=== PATIENT | female | born 1950 | race Caucasian/White ===

== ENCOUNTER 2019-02-19 12:39 | Emergency (ER) | payer MEDICARE, MEDICAID ==
[~2019-02-19] VITALS: Ht 121.9 cm; Wt 91.0 kg
[~2019-02-19 12:39] MED LIST: CEPHALEXIN500 MG PO; GABAPENTIN100 MG PO; KLOR-CON M1010 MEQ PO; LASIX 80 MG TAB80 MG PO; LISINOPRIL10 MG PO; NAPROXEN500 MG PO; NEXIUM20 M1 PO; OMEPRAZOLE DR20 MG PO
[2019-02-19 13:27] LABS: HEMATOCRIT 39.4 % (37.0-47.0); HEMOGLOBIN 12.3 g/dl (12.0-16.0); IMMATURE GRANULOCYTES 0.7 % (0.0-5.0); MEAN CELL VOLUME 89.1 fL CALC (80.0-100.0); MEAN CORPUSCULAR HGB 27.8 pG CALC (26.0-32.0); MEAN CORPUSCULAR HGB CONC 31.2 g/L CALC (32.0-36.0); NEUT# 4.75 thou/uL (2.00-7.15); RED BLOOD COUNT 4.42 mill/uL (4.20-5.60); RED CELL DISTRI WIDTH 14.6 % (11.5-15.5)
[2019-02-19 13:48] LABS: ALBUMIN 4.1 g/dL (3.2-5.0); ALKALINE PHOSPHATASE 112 u/l (38-126); ANION GAP 14 (6-22 (CALC)); BILIRUBIN, TOTAL 0.5 mg/dL (0.0-1.4); BUN 12 mg/dL (8-23); BUN/CREATININE RATIO 29 (12-20 (CALC)); CARBON DIOXIDE 22 mmol/l (22-30); CHLORIDE 105 mmol/l (95-108); CREATININE 0.4 mg/dL (0.5-1.0); GFR > 60 ML/MIN (>=60 (CALC)); GFR FOR AFR.AMER. > 60 ML/MIN (>=60 (CALC)); POTASSIUM 4.3 mmol/l (3.5-5.1); SGOT/AST 26 u/l (9-36); SODIUM 136 mmol/l (137-146); TOTAL PROTEIN 7.1 g/dL (6.3-8.2)
[2019-02-19] MEDS ORDERED: TAM75CAP PO (14:54)
[2019-02-19] MEDS ORDERED: ROBITUSSIN AC10 ML PO (14:55)
[2019-02-19 15:20] VITALS: BP 128/69
== END 2019-02-19 15:20 | disposition home or self-care (01) ==
LOC: ED 12:39
PROVIDERS: Emergency Medicine
DX: J11.1 Influenza due to unidentified influenza virus with other respiratory manifestations (principal); I10 Essential (primary) hypertension; F03.90 Unspecified dementia, unspecified severity, without behavioral disturbance, psychotic disturbance, mood disturbance, and anxiety

== ENCOUNTER 2019-05-03 | Emergency (ER) | payer MEDICARE, MEDICAID ==
[~2019-05-03] MED LIST changes: +ROBITUSSIN AC10 ML PO; +TAM75CAP PO
[2019-05-03 09:12] LABS: URINE BILIRUBIN - DIPSTICK NEGATIVE (NEGATIVE); URINE BLOOD DIPSTICK SMALL (NEGATIVE); URINE COLOR YELLOW; URINE GLUCOSE - DIPSTICK NEGATIVE (NEGATIVE); URINE KETONE NEGATIVE (NEGATIVE); URINE PROTEIN - DIPSTICK NEGATIVE (NEG-TRACE); URINE UROBILINOGEN - DIPSTICK 0.2 E.U./dL (0.2)
[2019-05-03 09:34] LABS: URINE NITRITE - DIPSTICK POSITIVE (Negative)
[2019-05-03 09:35] LABS: URINE LEUK ESTERASE MODERATE (NEGATIVE); URINE WBC 50-100 WBC/hpf (0-5)
[2019-05-03 09:36] LABS: URINE BACTERIA MANY hpf; URINE EPITHELIAL CELLS MANY EPI/hpf (0-FEW); URINE MUCUS MANY hpf (NONE-FEW)
[2019-05-03 10:23] LABS: ALBUMIN 4.1 g/dL (3.2-5.0); ALKALINE PHOSPHATASE 116 u/l (38-126); ANION GAP 12 (6-22 (CALC)); BILIRUBIN, TOTAL 0.6 mg/dL (0.0-1.4); BUN 14 mg/dL (8-23); BUN/CREATININE RATIO 34 (12-20 (CALC)); CARBON DIOXIDE 25 mmol/l (22-30); CHLORIDE 106 mmol/l (95-108); CREATININE 0.4 mg/dL (0.5-1.0); GFR > 60 ML/MIN (>=60 (CALC)); GFR FOR AFR.AMER. > 60 ML/MIN (>=60 (CALC)); LIPASE 73 u/l (23-300); POTASSIUM 3.9 mmol/l (3.5-5.1); SGOT/AST 19 u/l (9-36); SODIUM 139 mmol/l (137-146); TOTAL PROTEIN 6.8 g/dL (6.3-8.2)
[2019-05-03 11:06] LABS: HEMATOCRIT 39.7 % (37.0-47.0); HEMOGLOBIN 12.5 g/dl (12.0-16.0); IMMATURE GRANULOCYTES 0.4 % (0.0-5.0); MEAN CORPUSCULAR HGB CONC 31.5 g/L CALC (32.0-36.0); NEUT# 4.94 thou/uL (2.00-7.15); RED BLOOD COUNT 4.46 mill/uL (4.20-5.60); RED CELL DISTRI WIDTH 15.1 % (11.5-15.5)
[2019-05-03] MEDS ORDERED: CEPHALEXIN500 M1 PO (11:14)
== END 2019-05-03 11:44 | disposition home or self-care (01) ==
PROVIDERS: Family Medicine
DX: N39.0 Urinary tract infection, site not specified (principal); B96.20 Unspecified Escherichia coli [E. coli] as the cause of diseases classified elsewhere; I11.0 Hypertensive heart disease with heart failure; I50.9 Heart failure, unspecified; F03.90 Unspecified dementia, unspecified severity, without behavioral disturbance, psychotic disturbance, mood disturbance, and anxiety

== ENCOUNTER 2019-07-29 11:27 | Observation (INO) | payer MEDICARE, MEDICAID ==
[~2019-07-29] VITALS: Ht 121.9 cm; Wt 84.0 kg
[~2019-07-29 11:27] MED LIST changes: +CEPHALEXIN500 M1 PO
--- NOTE | 2019-07-29 11:27 | NUR ---
PT. IMMEDIATELY TO TREATMENT ROOM #13.
--- NOTE | 2019-07-29 11:41 | NUR ---
RADIOLOGY AT BEDSIDE TO PERFOR PORTABLE CHEST
[2019-07-29] MEDS ORDERED: FUROSEMIDE20 MG PO (11:48)
[2019-07-29] MEDS ORDERED: ATORVASTATIN CA10 MG PO (11:49)
[2019-07-29] MEDS ORDERED: NORVASC5 M1 PO (11:49)
[2019-07-29] MEDS ORDERED: SYMBICORT1 AE1 IN (11:50)
[2019-07-29] MEDS ORDERED: LINZESS145 MCG PO (11:50)
[2019-07-29] MEDS ORDERED: MELOXICAM7.5 MG PO (11:50)
[2019-07-29] MEDS ORDERED: VITAMIN D-32000 UNI1 PO (11:51)
[2019-07-29] MEDS ORDERED: OXYBUTYNIN CHLOR5 M1 PO (11:51)
[2019-07-29] MEDS ORDERED: TYLENOL500 MG PO (11:53)
--- NOTE | 2019-07-29 11:57 | NUR ---
PT CALLING FOR NURSE TO COME INTO ROOM EVERY FEW MIN. WANTS SOMEONE TO HOLD HAND. UNABLE TO OBTAIN IV AT THIS TIME. NOTIFIED.
[2019-07-29 12:45] LABS: URINE BILIRUBIN - DIPSTICK NEGATIVE (NEGATIVE); URINE BLOOD DIPSTICK NEGATIVE (NEGATIVE); URINE COLOR YELLOW; URINE GLUCOSE - DIPSTICK NEGATIVE (NEGATIVE); URINE KETONE NEGATIVE (NEGATIVE); URINE PROTEIN - DIPSTICK NEGATIVE (NEG-TRACE); URINE SPECIFIC GRAVITY 1.015; URINE UROBILINOGEN - DIPSTICK 0.2 E.U./dL (0.2)
[2019-07-29 12:46] LABS: HEMATOCRIT 38.4 % (37.0-47.0); HEMOGLOBIN 12.3 g/dl (12.0-16.0); IMMATURE GRANULOCYTES 0.4 % (0.0-5.0); MEAN CELL VOLUME 86.7 fL CALC (80.0-100.0); MEAN CORPUSCULAR HGB 27.8 pG CALC (26.0-32.0); NEUT# 6.43 thou/uL (2.00-7.15); RED BLOOD COUNT 4.43 mill/uL (4.20-5.60); RED CELL DISTRI WIDTH 14.2 % (11.5-15.5)
[2019-07-29 12:46] LABS: URINE BACTERIA MANY hpf; URINE EPITHELIAL CELLS MODERATE EPI/hpf (0-FEW); URINE LEUK ESTERASE MODERATE (NEGATIVE); URINE NITRITE - DIPSTICK POSITIVE (Negative)
--- NOTE | 2019-07-29 12:55 | NUR ---
PT RESTING QUIETLY, NO DISTRESS NOTED
[2019-07-29 13:17] LABS: ALBUMIN 4.1 g/dL (3.2-5.0); ALKALINE PHOSPHATASE 125 u/l (38-126); ANION GAP 12 (6-22 (CALC)); BILIRUBIN, TOTAL 0.4 mg/dL (0.0-1.4); BUN 17 mg/dL (8-23); BUN/CREATININE RATIO 40 (12-20 (CALC)); CARBON DIOXIDE 24 mmol/l (22-30); CHLORIDE 104 mmol/l (95-108); CREATININE 0.4 mg/dL (0.5-1.0); GFR > 60 ML/MIN (>=60 (CALC)); GFR FOR AFR.AMER. > 60 ML/MIN (>=60 (CALC)); LIPASE 70 u/l (23-300); POTASSIUM 3.7 mmol/l (3.5-5.1); SGOT/AST 21 u/l (9-36); SODIUM 137 mmol/l (137-146)
--- NOTE | 2019-07-29 13:55 | NUR ---
PT DOWN TO XRAY PER [place]
--- NOTE | 2019-07-29 14:45 | NUR ---
APPROX 500CC OF URINE OUT THRU WICK
--- NOTE | 2019-07-29 15:14 | NUR ---
PT CONSTANTLY DARKROOM WORKER LIGHT, REQUESTING TO HAVE HEAD OF STRETCHER EITHER MOVED UP OR DOWN. REQUESTING FOOD TRAY, ADVISED WAIT UNTIL EVERYTHING IS BACK AND WILL NOTIFY HER
--- NOTE | 2019-07-29 16:08 | NUR ---
PT RESTING QUIETLY ON STRETCHER
--- NOTE | 2019-07-29 16:22 | NUR ---
CALLED [facility] AND INFORMED THEM THAT PT WOULD BE ADMITTED
--- NOTE | 2019-07-29 16:50 | NUR ---
PT TAKEN TO FLOOR PER STRETCHER
[2019-07-29 17:28] VITALS: BP 158/81
--- NOTE | 2019-07-29 18:23 | NUR ---
PT ARRIVES TO ROOM 277 BY STRETCHER FROM ER, ACCOMPANIED BY BRENNEN NDIAYE. PT IS AWAKE, NEEDY. PT NOW WITH PUREWICK CATHETER PER UTI AND INABILITY TO TRANSFER WELL. INITIAL ASSESSMENT COMPLETED, VSS.
[2019-07-29 19:55] VITALS: BP 111/65
--- NOTE | 2019-07-29 21:35 | NUR ---
PHYSICAL ASSESMENT COMPLETE. VS TAKEN BY NEWSPAPER CARRIERS SUPERVISOR @ 1954 ASSESSED, TELEMETRY PT HEMODYNAMICALLY STABLE. PLAN OF CARE REVIEWED W/ PT. PT VERBALIZES UNDERSTANDING AND DENIES QUESTIONS @ THIS TIME. PT VERBALIZES UNDERSTANDING AND DENIES QUESTIONS @ THIS TIME. PT POSITIONED FOR COMFORT AND PROVIDED W/ HS SNACK PER HER REQUEST. DENIES FURTHER NEEDS @ THIS TIME. CALL AMBROSIO WITHIN REACH, AGREES TO CALL PRN. ITEMS WITHIN REACH. BED LOCKED IN LOW POSITION W/ BEDRAILS UP X2. WILL CON'T TO MONITOR.
--- NOTE | 2019-07-30 00:44 | NUR ---
PT APPEARS TO BE SLEEPING COMFORTABLY, NO APPARENT DISTRESS, RESPIRATIONS REGULAR AND UNLABORED. CALL AMBROSIO REMAINS WITHIN REACH. BED REMAINS LOCKED IN LOW POSITION W/ BEDRAILS UP X2. ITEMS WITHIN REACH. WILL CONT' TO MONITOR.
[2019-07-30 04:07] VITALS: BP 136/62
--- NOTE | 2019-07-30 05:00 | NUR ---
PHYSICAL ASSESMENT REMAINS UNCHANGED FROM START OF SHIFT. VS TAKEN BY BENZOL OPERATOR @ 0407 ASSESSED. PT REMAINS HEMODYNAMICALLY STABLE. RESTING IN BED COMFORTABLY @ THIS TIME. DENIES NEEDS @ THIS TIME. ITEMS WITHIN REACH. BED REMAINS LOCKED IN LOW POSITION W/ BED RAILS UPX2. CALL AMBROSIO REMAINS WITHIN REACH. PT AGREES TO CALL PRN.
[2019-07-30 08:10] VITALS: BP 135/74
--- NOTE | 2019-07-30 08:10 | NUR ---
PT RESTING IN BED, NO SIGNS OF DISTRESS NOTED, RESP EVEN AND UNLABORED. PT EASILY AROUSED TO VERBAL STIMULI, PT REQUESTING ANOTHER BREAKFAST, STATES SHE EATS EGGS AND TOAST AT HOME. NEW BREAKFAST ORDERED. VSS, DISCUSSED POC, PT ABLE TO MOVE EXTREMETIES STATES SHE WAS TOO WEAK TO EVEN WALK YESTERDAY. PURE WICK IN PLACE. ASSESSMENT COMPLETED, IV SITE FLUSHED WELL. CALL LIGHT IN REACH,CONTINUE TO MONITOR.
--- NOTE | 2019-07-30 09:43 | NUR ---
CASE MANAGEMENT AT BEDSIDE
--- NOTE | 2019-07-30 13:11 | NUR ---
INFORMED PT OF IV ROCEPHIN, PT VERBALIZED UNDERSTANDING. CALL LIGHT IN REACH,CONTINUE TO MONITOR.
--- NOTE | 2019-07-30 15:03 | NUR ---
PT RESTING IN BED WITH EYES CLOSED, NO SIGNS OF DISTRESS NOTED, RESP EVEN AND UNLABORED. CALL LIGHT IN REACH,CONTINUE TO MONITOR.
[2019-07-30 15:27] VITALS: BP 128/78
--- NOTE | 2019-07-30 18:07 | NUR ---
PT RESTING IN BED,NO SIGNS OF DISTRESS NOTED, RESP EVEN AND UNLABORED. DINNER PROVIDED. CALL LIGHT IN REACH,CONTINUE TO MONITOR.
[2019-07-30 19:21] VITALS: BP 103/49
--- NOTE | 2019-07-30 20:50 | NUR ---
PHYSICAL ASSESMENT COMPLETE. VS TAKEN BY SODA JERKER @ 1921 ASSESSED, TELEMETRY READING FOR 1999 FROM ED COMPUTER ARTIST ASSESSED. PT HEMODYNAMICALLY STABLE. PLAN OF CARE REVIEWED W/ PT. PT VERBALIZES UNDERSTANDING AND DENIES QUESTIONS @ THIS TIME. PT MEDICATED FOR C/O PAIN, SEE MAR FOR ADMINSITRATION DETAILS. PT DENIES NEEDS @ THIS TIME. CALL AMBROSIO WITHIN REACH, AGREES TO CALL PRN. ITEMS WITHIN REACH. BED LOCKED IN LOW POSITION W/ BEDRAILS UP X2. WILL CON'T TO MONITOR.
--- NOTE | 2019-07-30 20:50 | NUR ---
PHYSICAL ASSESMENT COMPLETE. VS TAKEN BY SCIENCE TUTOR @ 195 ASSESSED, PT HEMODYNAMICALLY STABLE. PLAN OF CARE REVIEWED W/ PT. PT VERBALIZES UNDERSTANDING AND DENIES QUESTIONS @ THIS TIME. PT POSITIONED FOR COMFORT AND PROVIDED W/ HS SNACK PER HER REQUEST. DENIES FURTHER NEEDS @ THIS TIME. CALL AMBROSIO WITHIN REACH, AGREES TO CALL PRN. ITEMS WITHIN REACH. BED LOCKED IN LOW POSITION W/ BEDRAILS UP X2. WILL CON'T TO MONITOR.
[2019-07-31 03:55] VITALS: BP 111/52
--- NOTE | 2019-07-31 05:29 | NUR ---
PHYSICAL ASSESMENT REMAINS UNCHANGED FROM START OF SHIFT. VS TAKEN BY INSTRUCTOR ADJUNCT SURGICAL TECHNICIAN @ 0355 ASSESSED. PT REMAINS HEMODYNAMICALLY STABLE. RESTING IN BED COMFORTABLY @ THIS TIME. DENIES NEEDS @ THIS TIME. ITEMS WITHIN REACH. BED REMAINS LOCKED IN LOW POSITION W/ BED RAILS UPX2. CALL AMBROSIO REMAINS WITHIN REACH. PT AGREES TO CALL PRN.
[2019-07-31 07:54] VITALS: BP 127/70
--- NOTE | 2019-07-31 07:54 | NUR ---
PT RESTING IN BED, NO SIGNS OF DISTRESS NOTED, RESP EVEN AND UNLABORED. DISCUSSED POC, PT ALERT AND ORIENTED X3, PURE WICK IN PLACE. ASSESSMENT COMPLETED, CALL LIGHT IN REACH,CONTINUE TO MONITOR.
[2019-07-31 07:59] VITALS: BP 127/70
[2019-07-31] MEDS ORDERED: KEFLEX250 MG PO (10:04)
--- NOTE | 2019-07-31 13:14 | NUR ---
Discharge instructions given. Patient verbalizes understanding of same. Discharged in stable condition via Wheelchair to [facility] with family. All belongings sent with pt.
--- NOTE | 2019-08-01 08:04 | NUR ---
07/31/19 Patient is screened for rehab needs. SHe has no needs at this time
[2019-08-01] MEDS ORDERED: VENTOLIN HFA IN (12:37)
== END 2019-07-31 13:25 ==
LOC: ED 11:27 → ED-I 15:02 → ED 15:14 → ED-I 15:15 → MS2 15:15
PROVIDERS: Family Medicine; ADMIT Internal Medicine; ATTEND Internal Medicine
DX: N12 Tubulo-interstitial nephritis, not specified as acute or chronic (principal); I11.0 Hypertensive heart disease with heart failure; I50.9 Heart failure, unspecified; F03.90 Unspecified dementia, unspecified severity, without behavioral disturbance, psychotic disturbance, mood disturbance, and anxiety; E78.5 Hyperlipidemia, unspecified; B96.20 Unspecified Escherichia coli [E. coli] as the cause of diseases classified elsewhere; Z20.828 Contact with and (suspected) exposure to other viral communicable diseases
CPT/HCPCS: G0378; Q9967

== ENCOUNTER 2019-08-01 09:28 | Observation (INO) | payer MEDICARE, MEDICAID ==
[~2019-08-01] VITALS: Ht 127 cm; Wt 85.0 kg
[~2019-08-01 09:28] MED LIST changes: +ATORVASTATIN CA10 MG PO; +FUROSEMIDE20 MG PO; +KEFLEX250 MG PO; +LINZESS145 MCG PO; +MELOXICAM7.5 MG PO; +NORVASC5 M1 PO; +OXYBUTYNIN CHLOR5 M1 PO; +SYMBICORT1 AE1 IN; +TYLENOL500 MG PO; +VITAMIN D-32000 UNI1 PO
[2019-08-01 10:22] LABS: HEMATOCRIT 41.6 % (37.0-47.0); HEMOGLOBIN 13.2 g/dl (12.0-16.0); IMMATURE GRANULOCYTES 0.4 % (0.0-5.0); MEAN CELL VOLUME 87.8 fL CALC (80.0-100.0); MEAN CORPUSCULAR HGB 27.8 pG CALC (26.0-32.0); MEAN CORPUSCULAR HGB CONC 31.7 g/dL CAL (32.0-36.0); NEUT# 10.04 thou/uL (2.00-7.15); RED BLOOD COUNT 4.74 mill/uL (4.20-5.60); RED CELL DISTRI WIDTH 14.5 % (11.5-15.5)
[2019-08-01 10:35] LABS: URINE BILIRUBIN - DIPSTICK NEGATIVE (NEGATIVE); URINE BLOOD DIPSTICK TRACE-INTACT (NEGATIVE); URINE COLOR YELLOW; URINE GLUCOSE - DIPSTICK NEGATIVE (NEGATIVE); URINE KETONE NEGATIVE (NEGATIVE); URINE NITRITE - DIPSTICK NEGATIVE (Negative); URINE PROTEIN - DIPSTICK NEGATIVE (NEG-TRACE); URINE UROBILINOGEN - DIPSTICK 0.2 E.U./dL (0.2)
[2019-08-01 10:37] LABS: ACT PARTIAL THROMBO TIME 26.1 SECONDS (20.0-32.5); INTERNATIONAL NORMALIZED RATIO 0.9 RATIO (0.7-1.3); PROTHROMBIN TIME 9.8 SECONDS (9.0-12.5)
[2019-08-01 10:38] LABS: ALBUMIN 4.1 g/dL (3.2-5.0); ALKALINE PHOSPHATASE 129 u/l (38-126); AMYLASE 62 u/l (30-110); BUN 14 mg/dL (8-23); BUN/CREATININE RATIO 35 (12-20 (CALC)); CARBON DIOXIDE 28 mmol/l (22-30); CHLORIDE 101 mmol/l (95-108); CREATININE 0.4 mg/dL (0.5-1.0); GFR > 60 ML/MIN (>=60 (CALC)); GFR FOR AFR.AMER. > 60 ML/MIN (>=60 (CALC)); LIPASE 42 u/l (23-300); SGOT/AST 23 u/l (9-36); SODIUM 136 mmol/l (137-146); TOTAL PROTEIN 7.4 g/dL (6.3-8.2)
[2019-08-01 10:39] LABS: URINE BACTERIA FEW hpf; URINE EPITHELIAL CELLS MODERATE EPI/hpf (0-FEW); URINE LEUK ESTERASE LARGE (NEGATIVE); URINE RBC 0-2 RBC/hpf (0-5); URINE WBC 20-50 WBC/hpf (0-5)
[2019-08-01 10:41] LABS: ANION GAP 12 (6-22 (CALC)); BILIRUBIN, TOTAL 0.6 mg/dL (0.0-1.4); POTASSIUM 4.5 mmol/l (3.5-5.1)
[2019-08-01] MEDS ORDERED: VENTOLIN HFA IN (12:37)
[2019-08-01 13:46] VITALS: BP 97/45
[2019-08-01 15:40] VITALS: BP 104/61
[2019-08-01 18:58] VITALS: BP 102/55
[2019-08-02 05:15] VITALS: BP 109/61
[2019-08-02 05:33] LABS: HEMATOCRIT 40.1 % (37.0-47.0); HEMOGLOBIN 12.2 g/dl (12.0-16.0); IMMATURE GRANULOCYTES 0.4 % (0.0-5.0); MEAN CELL VOLUME 91.6 fL CALC (80.0-100.0); MEAN CORPUSCULAR HGB 27.9 pG CALC (26.0-32.0); MEAN CORPUSCULAR HGB CONC 30.4 g/dL CAL (32.0-36.0); NEUT# 5.6 thou/uL (2.00-7.15); RED BLOOD COUNT 4.38 mill/uL (4.20-5.60); RED CELL DISTRI WIDTH 14.6 % (11.5-15.5)
[2019-08-02 05:57] LABS: ANION GAP 10 (6-22 (CALC)); BUN 23 mg/dL (8-23); BUN/CREATININE RATIO 47 (12-20 (CALC)); CARBON DIOXIDE 28 mmol/l (22-30); CHLORIDE 103 mmol/l (95-108); CREATININE 0.5 mg/dL (0.5-1.0); GFR > 60 ML/MIN (>=60 (CALC)); GFR FOR AFR.AMER. > 60 ML/MIN (>=60 (CALC)); POTASSIUM 4.9 mmol/l (3.5-5.1); SODIUM 135 mmol/l (137-146)
[2019-08-02 08:00] VITALS: BP 133/79
[2019-08-02 15:40] VITALS: BP 97/56
[2019-08-02 19:03] VITALS: BP 96/55
[2019-08-03 04:05] VITALS: BP 117/62
[2019-08-03 08:02] VITALS: BP 133/51
[2019-08-03] MEDS ORDERED: LEVAQUIN750 MG PO (12:23)
[2019-08-03 16:06] VITALS: BP 101/59
[2019-08-03 18:54] VITALS: BP 118/63
[2019-08-04 04:08] VITALS: BP 116/64
[2019-08-04 08:10] VITALS: BP 135/100
[2019-08-04 15:06] VITALS: BP 97/63
== END 2019-08-04 17:55 ==
LOC: ED 09:28 → ED-I 11:30 → ED 11:42 → ED-I 11:43 → MS2 11:43
PROVIDERS: ADMIT Internal Medicine; ATTEND Internal Medicine
DX: J18.9 Pneumonia, unspecified organism (principal); N39.0 Urinary tract infection, site not specified; I11.0 Hypertensive heart disease with heart failure; I50.9 Heart failure, unspecified; E78.5 Hyperlipidemia, unspecified; F03.90 Unspecified dementia, unspecified severity, without behavioral disturbance, psychotic disturbance, mood disturbance, and anxiety; M25.561 Pain in right knee; Z20.828 Contact with and (suspected) exposure to other viral communicable diseases
CPT/HCPCS: G0378

== ENCOUNTER 2020-10-19 07:15 | Inpatient (IN) | payer MEDICARE, MEDICAID ==
[~2020-10-19] VITALS: Ht 127 cm; Wt 94.0 kg
[~2020-10-19 07:15] MED LIST changes: +LEVAQUIN750 MG PO; +VENTOLIN HFA IN
--- NOTE | 2020-10-19 07:20 | NUR ---
REPORT FROM EMS PATIENT CHANGED INTO GOWN
[2020-10-19 08:21] LABS: HEMATOCRIT 40.7 % (37.0-47.0); HEMOGLOBIN 11.2 g/dl (12.0-16.0); IMMATURE GRANULOCYTES 4.5 % (0.0-5.0); MEAN CORPUSCULAR HGB 28.4 pG CALC (26.0-32.0); MEAN CORPUSCULAR HGB CONC 27.5 g/dL CAL (32.0-36.0); NEUT# 11.02 thou/uL (2.00-7.15); RED BLOOD COUNT 3.95 mill/uL (4.20-5.60); RED CELL DISTRI WIDTH 14.2 % (11.5-15.5)
[2020-10-19 08:38] LABS: ALBUMIN 3.8 g/dL (3.2-5.0); ALKALINE PHOSPHATASE 93 u/l (38-126); BUN 21 mg/dL (8-23); BUN/CREATININE RATIO 86 (12-20 (CALC)); CREATININE 0.2 mg/dL (0.5-1.0); GFR > 60 ML/MIN (>=60 (CALC)); GFR FOR AFR.AMER. > 60 ML/MIN (>=60 (CALC)); POTASSIUM 4.8 mmol/l (3.5-5.1); SGOT/AST 27 u/l (9-36); SODIUM 136 mmol/l (137-146); TOTAL PROTEIN 6.9 g/dL (6.3-8.2)
[2020-10-19 08:45] LABS: CHLORIDE 88 mmol/l (95-108)
[2020-10-19 08:46] LABS: URINE BILIRUBIN - DIPSTICK NEGATIVE (NEGATIVE); URINE BLOOD DIPSTICK TRACE-INTACT (NEGATIVE); URINE COLOR YELLOW; URINE GLUCOSE - DIPSTICK NEGATIVE (NEGATIVE); URINE KETONE NEGATIVE (NEGATIVE); URINE PROTEIN - DIPSTICK NEGATIVE (NEG-TRACE); URINE SPECIFIC GRAVITY 1.025; URINE UROBILINOGEN - DIPSTICK 0.2 E.U./dL (0.2)
[2020-10-19 08:46] LABS: ANION GAP 9 (6-22 (CALC)); BILIRUBIN, TOTAL 0.2 mg/dL (0.0-1.4); CARBON DIOXIDE 44 mmol/l (22-30)
[2020-10-19 08:48] LABS: URINE LEUK ESTERASE SMALL (NEGATIVE); URINE NITRITE - DIPSTICK POSITIVE (Negative)
[2020-10-19 08:49] LABS: MYOGLOBIN 9 ng/mL (0 - 62)
[2020-10-19 08:49] LABS: URINE BACTERIA MANY hpf; URINE EPITHELIAL CELLS MODERATE EPI/hpf (0-FEW); URINE RBC 0-2 RBC/hpf (0-5)
[2020-10-19] MEDS ORDERED: CYMBALTA30 MG PO (08:59)
--- NOTE | 2020-10-19 08:59 | NUR ---
PATIENT TAKEN FOR PICC LINE
[2020-10-19] MEDS ORDERED: BYSTOLIC5 MG PO (09:03)
[2020-10-19] MEDS ORDERED: LASIX20 MG PO (09:05)
[2020-10-19] MEDS ORDERED: DILTIAZEM60 MG PO (09:09)
[2020-10-19] MEDS ORDERED: AMITIZA8 MCG PO (09:14)
[2020-10-19] MEDS ORDERED: CEFUROXIME250 MG PO (09:16)
[2020-10-19] MEDS ORDERED: ELIQUIS5 MG PO (09:17)
[2020-10-19] MEDS ORDERED: LACTINEX PO (09:18)
--- NOTE | 2020-10-19 09:51 | NUR ---
PATIENT RETURNED FROM PICC LINE PLACEMENT
--- NOTE | 2020-10-19 12:00 | NUR ---
PATIENT WAS TAKEN TO CT BUT IT WASNT AVALIBLE TO DO IT BECAUSE THE PATIENT DONT FIT IN THE MACHINE AND THE RADIOLOGY PERSONAL BRING THE PATIENT BACK MD RIVERS NOTIFY ABOUT IT AND CHARGE NURSE TO.
--- NOTE | 2020-10-19 12:21 | NUR ---
Reassessment of patient completed. No distress noted. PATIENT WEAR THE BPAP MACHINE 02 95%
[2020-10-19] MEDS ORDERED: CARTIA XT300 MG PO (13:28)
--- NOTE | 2020-10-19 14:45 | NUR ---
PATIENT DISCHARGE AMBULATORY HOME
--- NOTE | 2020-10-19 15:31 | NUR ---
Reassessment of patient completed. No distress noted. RUPERT POLY AREA SUPERVISOR IS IN THE ROOM AT BEDSIDE WITH THE PATIENT
--- NOTE | 2020-10-19 15:37 | NUR ---
NAD. VSS. NO CHANGES ON NIV PARAMETERS AT THIS TIME. RUY NEB THERAPY WELL. PT STATES SHE "WANTS TO " AND "WANTS HER CAT". RN AWARE.
--- NOTE | 2020-10-19 18:29 | NUR ---
Reassessment of patient completed. No distress noted.
--- NOTE | 2020-10-19 19:25 | NUR ---
Reassessment of patient completed. No distress noted.
--- NOTE | 2020-10-19 22:05 | NUR ---
PT RESTING IN BED. PIPAP IN USE. PT FREQUENTLY REMOVING STRAP OF BIPAP. PT ENOURAGED TO KEEP BIPAP MASK AND STRAP SECURED FOR EFFECTIVE USE. NO DISTRESS. PT SEEMS CONFUSED. REPEATEDLY ASKING, "WHY ARE YOU KILLING PEOPLE HERE." EMOTIONAL SUPPORT PROVIDED. SHORT EXTREMITIES X 4 NOTED
--- NOTE | 2020-10-20 02:24 | NUR ---
DECREASED SETTINGS TO 16/8 DUE TO VERY LARGE VTs ON PREVIOUS SETTINGS.
--- NOTE | 2020-10-20 02:30 | NUR ---
REPOSITIONED FOR COMFORT. NO DISTRESS.
[2020-10-20 07:00] LABS: BUN 21 mg/dL (8-23); BUN/CREATININE RATIO 91 (12-20 (CALC)); CALCULATED LDLCHOLESTEROL 104 mg/dL (62-129 (CALC)); CHLORIDE 89 mmol/l (95-108); CHOLESTEROL HDL RATIO 3.2 (<4.4 (CALC)); CREATININE 0.2 mg/dL (0.5-1.0); GFR > 60 ML/MIN (>=60 (CALC)); GFR FOR AFR.AMER. > 60 ML/MIN (>=60 (CALC)); HDL CHOLESTEROL 56 mg/dL (>=40); MAGNESIUM 1.7 mg/dL (1.6-2.3); POTASSIUM 4.3 mmol/l (3.5-5.1); SODIUM 135 mmol/l (137-146); TOTAL CHOLESTEROL 177 mg/dl (0-199); TOTAL TRIGLYCERIDES 86 mg/dl (30-149); VLDL CHOLESTROL 17 mg/dl (0-48 (CALC))
[2020-10-20 07:08] LABS: ANION GAP 8 (6-22 (CALC)); HEMOGLOBIN 10.8 g/dl (12.0-16.0); MEAN CORPUSCULAR HGB 28.6 pG CALC (26.0-32.0); RED BLOOD COUNT 3.78 mill/uL (4.20-5.60)
[2020-10-20 07:09] LABS: MEAN CELL VOLUME 95.2 fL CALC (80.0-100.0)
[2020-10-20 07:15] LABS: CARBON DIOXIDE 42 mmol/l (22-30)
--- NOTE | 2020-10-20 07:25 | NUR ---
PATIENT TRANSFERED TO HOSPITAL BED, AM CARES COMPLETED
--- NOTE | 2020-10-20 08:18 | NUR ---
BAND STRAIGHTENER CURRENTLY BEDSIDE WITH PATIENT
--- NOTE | 2020-10-20 10:31 | NUR ---
Reassessment of patient completed. No distress noted.
--- NOTE | 2020-10-20 11:11 | NUR ---
WEANED PT FROM NIV ONTO 5LPM NC. RUY WELL AT THIS TIME. NAD. VSS. MEDICAL ASSEMBLER TO MONITOR. RN AWARE.
--- NOTE | 2020-10-20 13:46 | NUR ---
MARGOT NDIAYE CURRENTLY BEDISDE FOR WALKING PATINET REPORT
--- NOTE | 2020-10-20 14:00 | NUR ---
ADMISSION ASSESSMENT COMPLETED IN ER AT THIS TIME. DR MAI NOTIFIED OF ASSESSMENT FINDINGS NEW ORDERS RECEIVED.
--- NOTE | 2020-10-20 17:40 | NUR ---
COMPLETE BED AND LINEN CHANGE WITH GOUWN AND ADULT BRIEF
--- NOTE | 2020-10-20 17:55 | NUR ---
Reassessment of patient completed. No distress noted.
--- NOTE | 2020-10-20 19:35 | NUR ---
RECIEVED REPORT FROM ZELDA BALLESTEROS. ASSUMED CARE OF PATIENT.
[2020-10-20 20:50] VITALS: BP 158/78
--- NOTE | 2020-10-20 20:52 | NUR ---
Admission Note Report Given to: ALY NDIAYE Transported by: Wheelchair X Stretcher Transported with: X Nurse Transporter X Patent IV X O2 X Sericulture Teacher Location: ICU X MS2
--- NOTE | 2020-10-20 21:00 | NUR ---
PATIENT ADMITTED FROM ER VIA BED WITH ER STAFF IN ATTENDANCE. PATIENT WITH O2 VIA NASAL CANNULA IN PLACE AT 4LPM. O2 SAT AT THIS TIME IS 94%. PATIENT IS AWAKE ALERT AND ORIENTED TO PERSON AND PLACE. PATIENT WITH NO COMPLAINTS OF PAIN AT THIS TIME. DOUBLE LUMEN PICC TO RIGHT UPPER ARM INTACT. OLD BLOODY DRAINAGE NOTED TO DRESSING. ACCU-CHECK WAS 170 AT THIS TIME. COVERED WITH 1UNIT OF HUMALOG PER SLIDING SCALE COVERAGE. HS SNACK WAS PROVIDED. BLE SWELLING NOTED AND FEET ELEVATED ON PILLOWS. PULSES ARE PALPABLE. ORIENTED TO ROOM AND SURROUNDINGS. INSTRUCTED ON USE OF NURSE CALL LIGHT SYSTEM, TV REMOTE AND PHONE. SAFETY PRECAUTIONS REINFORCED. CALL LIGHT IN REACH. WILL CONT TO MONITOR.
[2020-10-21] VITALS: BP 152/64
--- NOTE | 2020-10-21 01:16 | NUR ---
PATIENT RESTING IN BED WITH O2 VIA NASAL CANNULA INPLACE AT 4LPM. EYES ARE CLOSED. RESPS ARE EVEN AND UNLABORED. CALL LIGHT IN REACH. WILL CONT TO MONITOR.
[2020-10-21 04:00] VITALS: BP 157/69
--- NOTE | 2020-10-21 04:56 | NUR ---
PATIENT INCONT OF LARGE AMT OF URINE. PUREWICK PLACED FOR MORE ACCURATE I&O. TANISHA-CARE WAS GIVEN. O2 VIA NASAL CANNULA IN PLACE. CALL LIGHT IN REACH. WILL CONT TO MONITOR.
[2020-10-21 08:00] VITALS: BP 146/66
--- NOTE | 2020-10-21 10:12 | NUR ---
PT SEEN AWAKE, ALERT, ORIENTED X 1 SHE RESTS IN THE BED. LUNGS CLEAR, 4 LPM. PT IS A DWARF. PUREWICK IN PLACE. PT SEEN TO HAVE 229 ML IN BLADDER AFTER CONCERN THAT SHE HAS NOT GONE IN A WHILE. PT IS CONFUSED, ASKING EVERY PERSON IN HER ROOM FOR A WHEELCHAIR SO THAT SHE CAN GO HOME. NAD.
[2020-10-21 10:33] VITALS: BP 155/58
--- NOTE | 2020-10-21 13:46 | NUR ---
PT CONTINUES BEFORE, ASKS FOR A WHEELCHAIR OFTEN. NO DISTRESS SHE RESTS IN THE BED.
--- NOTE | 2020-10-21 13:48 | NUR ---
PT SEEN BY DR MASON THIS MORNING, NG TUBE REMOVED. PT AWARE OF MED CHANGE TO PO. PT OOB TO BR EVERY HOUR OR TWO.
[2020-10-21 15:45] VITALS: BP 126/50
--- NOTE | 2020-10-21 18:29 | NUR ---
DRESSING CHANGED TO LATASHA PICC, PT TOLERATED WELL. NO DISTRESS, NO COMPLAINTS. PT REMAINS CONFUSED MUCH OF THE TIME.
[2020-10-21 18:45] VITALS: BP 121/62
--- NOTE | 2020-10-21 19:15 | NUR ---
PATIENT ALERT WITH CONFUSION. ASSESSMENT COMPLETED AT THIS TIME. NO COMPLAINTS OF PAIN OR DISCOMFORT NOTED AT THIS TIME. DOUBLE LUMEN PICC TO RIGHT UPPER ARM INTACT AT THIS TIME. BED IN LOWEST POSITION WITH BELONGINGS AND CALL LIGHT WITHIN REACH.
--- NOTE | 2020-10-21 22:39 | NUR ---
HUNG IV ABT PER ORDER. PATIENT HAS NO COMPLAINTS VOICED AT THIS TIME. BED IN LOWEST POSITION. CALL LIGHT WITHIN REACH.
[2020-10-22] VITALS (8 sets, daily range): BP systolic 140–168; BP diastolic 65–89
--- NOTE | 2020-10-22 03:00 | NUR ---
TANISHA CARE/ ADL PROVIDED WITH SEWER CLEANER TO PATIENT. INCONTINENCE OF URINE. PATIENT TOLERATED TANISHA CARE WELL. PATIENT REQUESTED DIET SOFT DRINK AND RECEIVED. BED IN LOWEST POSITION. CALL LIGHT WITHIN REACH.
--- NOTE | 2020-10-22 04:40 | NUR ---
TRAE BLOODWORK FROM RIGHT UPPER ARM PICC. PATIENT TOLERATED WELL. BOTH LUMENS FLUSH WELL.
[2020-10-22 05:17] LABS: HEMATOCRIT 36.7 % (37.0-47.0); HEMOGLOBIN 10.7 g/dl (12.0-16.0); MEAN CELL VOLUME 97.1 fL CALC (80.0-100.0); MEAN CORPUSCULAR HGB 28.3 pG CALC (26.0-32.0); MEAN CORPUSCULAR HGB CONC 29.2 g/dL CAL (32.0-36.0); RED BLOOD COUNT 3.78 mill/uL (4.20-5.60); RED CELL DISTRI WIDTH 13.7 % (11.5-15.5)
[2020-10-22 05:42] LABS: ALBUMIN 3.2 g/dL (3.2-5.0); ALKALINE PHOSPHATASE 71 u/l (38-126); BUN 25 mg/dL (8-23); BUN/CREATININE RATIO 83 (12-20 (CALC)); CHLORIDE 86 mmol/l (95-108); CREATININE 0.3 mg/dL (0.5-1.0); GFR > 60 ML/MIN (>=60 (CALC)); GFR FOR AFR.AMER. > 60 ML/MIN (>=60 (CALC)); POTASSIUM 3.6 mmol/l (3.5-5.1); SGOT/AST 15 u/l (9-36); SODIUM 136 mmol/l (137-146); TOTAL PROTEIN 5.8 g/dL (6.3-8.2)
[2020-10-22 05:54] LABS: ANION GAP 7 (6-22 (CALC)); BILIRUBIN, TOTAL 0.1 mg/dL (0.0-1.4); CARBON DIOXIDE 47 mmol/l (22-30)
--- NOTE | 2020-10-22 06:36 | NUR ---
RECIEVED CALL FROM ED IN LAB WITH CRITICAL LAB VALUE OF CO2-47. PATIENT REMAINS ALERT AND ORIENTED TO SELF AND PLACE WITH O2 VIA NASAL CANNULA AT 4LPM. REMAINS AT BASELINE. DR. MAI CALLED WITH CRITICAL RESULTS. NO NEW ORDERS RECIEVED. WILL CONT TO MONITOR.
--- NOTE | 2020-10-22 07:00 | NUR ---
RECIEVED REPORT FROM ZELDA LEWIS
--- NOTE | 2020-10-22 09:01 | NUR ---
PT RESTING IN SEMI FOWLERS POSITION. PT IS A/O X3 WITH SOME CONFUSION. ASSESSMENT AND VITALS COMPLETED. REPSIRATIONS ARE EVEN AND UNLABORED WITH NO DISTRESS NOTED. 96% ON 4L NC, PT STATES SHE WEAR 4L AT HOME. LUNG SOUNDS ARE CLEAR. HEART RHYTHM NORMAL WITH TELE IN PLACE, SR PER ER MONITORING. BOWEL SOUNDS ARE ACTIVE. PEDAL PULSES WEAK. 3+ EDEMA TO BLE. LATASHA PICC FLUSHED WITH GOOD BLOOD RETURN. BRUISING NOTED AROUND PICC, PT DENIES ANY DISCOMFORTS. PUREWHCIK IN PLACE, CONT SUCTION. PT COMPLAINS OF UNABLE TO LEFT LEFT ARM DUE TO PAIN, PT REFUSES PAIN MEDICATIONS. PT DENIES OF ANY ADDITIONAL NEEDS. ALL SAFETY PRECAUTIONS ARE IN PLACE WITH CALL LIGHT IN REACH. WILL CONTINUE TO MONITOR.
--- NOTE | 2020-10-22 11:53 | NUR ---
PT RESTING IN HIGH FOLWERS POSITION EATING LUNCH. PT REQUEST TO BE FED. PT INFORMED PT THAT SHE HAD NO TROUBLE FEEDING HER SELF THIS MORNING. LUNCH TRAY ACCOMIDATED FOR PT. ACCUCHECK RESULTING IN 210, COVERAGE ADMINISTERED. REPSIRARTIONS REMAINS EVEN AND UNLABORED ON 4L NC. TELE MONITORING IN PLACE. PT DENIES OF ANY ADDITIONAL NEEDS. ALL SAFETY PRECAUTIONS ARE IN PLACE WITH CALL LIGHT IN REACH. WILL CONTINUE TO MONITOR.
--- NOTE | 2020-10-22 16:14 | NUR ---
PT NRESTING IN SEMI FOWLERS POSITION. RESPIRATIONS ARE EVEN AND UNLABORED ON 4L NC. LATASHA PICC IN PLACE. TELE MONITORING IN PLACE. PT DENIES OF ANY PAINS OR DISCOMFORTS AT THIS TIME. ALL SAFETY PRECAUTIONS ARE IN PLACE WITH CALL LIGHT IN REACH. WILL CONTINUE TO MONITOR.
--- NOTE | 2020-10-22 19:40 | NUR ---
PATIENT APPEARS ALERT AND ORIENTED WITH CONFUSION AT TIMES. ASSESSMENT DONE AT THIS TIME. DENIES AND PAIN OR DISCOMFORT. DRESSING TO RIGHT UPPER ARM PICC CDI. PUREWICK IN PLACE DRAINING. BED IN LOWEST POSITION. CALL LIGHT WITHIN REACH.
--- NOTE | 2020-10-22 21:01 | NUR ---
PATIENT RECEIVED ALL MEDICATIONS WITHOUT DIFFICULTY. SNACK PROVIDED AFTER INSULIN COVERAGE GIVEN.
--- NOTE | 2020-10-22 23:23 | NUR ---
MEDICATED PATIENT FOR HEADACHE. COMFORT MEASURES ALSO PROVIDED. LOW LIGHTING.
[2020-10-23 04:50] VITALS: BP 154/65
[2020-10-23 06:17] LABS: HEMOGLOBIN 11.1 g/dl (12.0-16.0); MEAN CELL VOLUME 97.7 fL CALC (80.0-100.0); MEAN CORPUSCULAR HGB 28.5 pG CALC (26.0-32.0); MEAN CORPUSCULAR HGB CONC 29.2 g/dL CAL (32.0-36.0); RED BLOOD COUNT 3.89 mill/uL (4.20-5.60); RED CELL DISTRI WIDTH 13.8 % (11.5-15.5)
[2020-10-23 06:30] LABS: BUN 25 mg/dL (8-23); BUN/CREATININE RATIO 57 (12-20 (CALC)); CHLORIDE 86 mmol/l (95-108); CREATININE 0.4 mg/dL (0.5-1.0); GFR > 60 ML/MIN (>=60 (CALC)); GFR FOR AFR.AMER. > 60 ML/MIN (>=60 (CALC)); MAGNESIUM 1.5 mg/dL (1.6-2.3); POTASSIUM 4.1 mmol/l (3.5-5.1); SODIUM 137 mmol/l (137-146)
[2020-10-23 06:36] LABS: ANION GAP 5 (6-22 (CALC))
[2020-10-23 06:47] LABS: CARBON DIOXIDE 50 mmol/l (22-30)
--- NOTE | 2020-10-23 06:49 | NUR ---
RECIEVED CALL FROM [facility] IN LAB WITH CRITICAL LAB OF CO2 50 THIS MORNING. AWARE OF PERSISTANT ELEVATED CO2 LEVEL. REPORTED TO ONCOMING SHIFT-EMMETT KENN. WILL CONT TO MONITORL.
--- NOTE | 2020-10-23 07:00 | NUR ---
RECIEVED REPORT FROM ZELDA LEWIS
[2020-10-23 07:46] VITALS: BP 162/81
--- NOTE | 2020-10-23 07:46 | NUR ---
PT RESTING IN SEMI FOWLERS POSIITON. PT IS A/O X3 WITH CONFUSION. ASSESSMENT AND VITALS COMPLETED. RESPIRATIONS ARE EVEN AND UNLABORED ON 4L NC, O2 SAT 95%. LUNG SOUNDS ARE CLEAR. HEART RHYTM NORMAL WITH TELE IN PLACE. BOWEL SOUNDS ARE ACTIVE. LATASHA DOUBLE LUMEN PICC FLUSHED, SITE APPEARS HEALTHY AND PATENT. BRUISING NOTED AROUND SIDE. PEDAL PULSES WEAK. GERNALIZED EDEMA NOTED. LEFT ARM EDEMADOUS, PT STATES SHE CANNOT LIFT DUE TO PAIN. PT DENIES OF ANY ADDITIONAL NEEDS AT THIS TIME.PT REQUEST SOEMTHING TO ASSIST WITH BM. MD TO BE NOTIFIED. ALL SAFETY PRECAUTIONS ARE IN PLACE WITH CALL LIGHT IN REACH. WILL CONTINUE TO MONITOR.
[2020-10-23 10:57] VITALS: BP 140/68
--- NOTE | 2020-10-23 11:39 | NUR ---
DR PINON AND JUAN,ANZARIA AT BEDSIDE
--- NOTE | 2020-10-23 11:41 | NUR ---
PT RESTING IN SEMI FOWLERS POSITION. RESPIRATIONS ARE EVEN AND UNLABROED ON 4L NC. LATASHA DOUBLE LUMEN PICC REMAINS IN PLACE. TELE MONITORING IN PLACE. PUREWHCIK WITH CONT SUCTION. PT DENIES OF ANY PAINS OR NEEDS AT THIS TIME. ALL SAFETY PRECAUTIONS ARE IN PLACE WITH CALL LIGHT IN REACH. WILL CONTINUE TO MONITOR.
--- NOTE | 2020-10-23 12:47 | NUR ---
LATASHA PICC FLUSHED AND HEPARIN ADMINISTERED. SITE REMAINS HEALTHY AND PATENT.
[2020-10-23] MEDS ORDERED: MACROBID100 M1 PO (14:04)
--- NOTE | 2020-10-23 15:12 | NUR ---
PT EDUCATED ON DC INSTRUCTIONS AND NEW MEDICATIONS. PT VERBLAIZED UNDERSTANDING. PICC LINE TO BE REMOVED BY ZELDA MENEZES. TELE MONITORING REMOVED, ER NOTIFIED. DC INSTRCUTIONS CALLED TO MIKI, SON OF PT. TRANSPORTATION TO [facility] TO ARRIVED AT 1400
--- NOTE | 2020-10-23 15:46 | NUR ---
LATASHA PICC LINE REMOVED BY ZELDA MENEZES AND ZELDA FROST. PRESSURE DRESSING REMAINS.
--- NOTE | 2020-10-23 16:18 | NUR ---
Discharge instructions given. Patient verbalizes understanding of same. Discharged in fair condition via Medical Transport to Home with staff. All belongings sent with pt. PT DC IN STABLE CONDTIION TO R VIA WHEELCHAIR WITH ALL DC INSTRUCTIONS AND BLEONGINGS ASSISTED BY DHR ON 4L NC.
--- NOTE | 2020-10-23 16:23 | NUR ---
REPORT GIVEN TO ZELDA LOTT AT [facility].
== END 2020-10-23 16:14 | DRG 291 ==
LOC: ED 07:15 → ED-I 10:19 → ED 10:30 → ED-I 10:31 → MS2 10-20 13:08 → ED-I 10-20 14:02 → MS2 10-20 20:20
PROVIDERS: Emergency Medicine; Nurse Practitioner; Nurse Practitioner Family; ADMIT Internal Medicine; ATTEND Internal Medicine
PROC: 5A09357 Assistance with Respiratory Ventilation, Less than 24 Consecutive Hours, Continuous Positive Airway Pressure (ICD-10-PCS; principal; 2020-10-19)
PROC: 02HV33Z Insertion of Infusion Device into Superior Vena Cava, Percutaneous Approach (ICD-10-PCS; 2020-10-19)
PROC: B518ZZA Fluoroscopy of Superior Vena Cava, Guidance (ICD-10-PCS; 2020-10-19)
DX: I11.0 Hypertensive heart disease with heart failure (principal); J18.9 Pneumonia, unspecified organism; J96.02 Acute respiratory failure with hypercapnia; J96.01 Acute respiratory failure with hypoxia; N39.0 Urinary tract infection, site not specified; G93.40 Encephalopathy, unspecified; J44.0 Chronic obstructive pulmonary disease with (acute) lower respiratory infection; Z16.12 Extended spectrum beta lactamase (ESBL) resistance; I50.9 Heart failure, unspecified; E11.40 Type 2 diabetes mellitus with diabetic neuropathy, unspecified; E78.5 Hyperlipidemia, unspecified; F03.90 Unspecified dementia, unspecified severity, without behavioral disturbance, psychotic disturbance, mood disturbance, and anxiety; I48.91 Unspecified atrial fibrillation; F41.9 Anxiety disorder, unspecified; F32.9 Major depressive disorder, single episode, unspecified; E83.42 Hypomagnesemia; B96.20 Unspecified Escherichia coli [E. coli] as the cause of diseases classified elsewhere; Z86.16 Personal history of COVID-19; Z79.01 Long term (current) use of anticoagulants; Z20.822 Contact with and (suspected) exposure to COVID-19
CPT/HCPCS: J3475; Q3014

== ENCOUNTER 2020-11-05 13:53 | Inpatient (IN) | payer MEDICARE, MEDICAID ==
[2020-11-05] VITALS (7 sets, daily range): BP systolic 59–110; BP diastolic 32–52
[~2020-11-05] VITALS: Ht 127 cm; Wt 73.0 kg
[~2020-11-05 13:53] MED LIST changes: +AMITIZA8 MCG PO; +BYSTOLIC5 MG PO; +CARTIA XT300 MG PO; +CEFUROXIME250 MG PO; +CYMBALTA30 MG PO; +DILTIAZEM60 MG PO; +ELIQUIS5 MG PO; +LACTINEX PO; +LASIX20 MG PO; +MACROBID100 M1 PO
--- NOTE | 2020-11-05 15:02 | NUR ---
TO ROOM FOR TRIAGE
--- NOTE | 2020-11-05 15:15 | NUR ---
TO ROOM FOR TRIAGE
[2020-11-05 15:39] LABS: HEMATOCRIT 38.3 % (37.0-47.0); HEMOGLOBIN 10.4 g/dl (12.0-16.0); IMMATURE GRANULOCYTES 0.2 % (0.0-5.0); MEAN CORPUSCULAR HGB 28.4 pG CALC (26.0-32.0); MEAN CORPUSCULAR HGB CONC 27.2 g/dL CAL (32.0-36.0); NEUT# 11.65 thou/uL (2.00-7.15); RED BLOOD COUNT 3.66 mill/uL (4.20-5.60); RED CELL DISTRI WIDTH 15.3 % (11.5-15.5)
[2020-11-05 15:40] LABS: MEAN CELL VOLUME 104.6 fL CALC (80.0-100.0)
[2020-11-05 16:02] LABS: ALBUMIN 3.6 g/dL (3.2-5.0); ALKALINE PHOSPHATASE 76 u/l (38-126); BUN 25 mg/dL (8-23); BUN/CREATININE RATIO 101 (12-20 (CALC)); CHLORIDE 91 mmol/l (95-108); CREATININE 0.2 mg/dL (0.5-1.0); GFR > 60 ML/MIN (>=60 (CALC)); GFR FOR AFR.AMER. > 60 ML/MIN (>=60 (CALC)); POTASSIUM 3.8 mmol/l (3.5-5.1); SGOT/AST 21 u/l (9-36); SODIUM 143 mmol/l (137-146); TOTAL PROTEIN 6.5 g/dL (6.3-8.2)
[2020-11-05 16:13] LABS: ANION GAP 4 (6-22 (CALC)); BILIRUBIN, TOTAL 0.3 mg/dL (0.0-1.4); CARBON DIOXIDE 52 mmol/l (22-30)
--- NOTE | 2020-11-05 16:49 | NUR ---
resting quietly,call rueda in reach
--- NOTE | 2020-11-05 17:50 | NUR ---
RT TO BEDSIDE TO EVALUATE PATIENT.
--- NOTE | 2020-11-05 19:30 | NUR ---
PT W/P/D DENIES PAIN REFUSED PAIN MED.PT UNCOMFORTABLE WITH FACE MASK DR DASILVA INFORMED.
--- NOTE | 2020-11-05 20:12 | NUR ---
IV SALINE 1L BOLUS BEGUN
--- NOTE | 2020-11-05 20:41 | NUR ---
PER SUE Harmon IV BOLUS SALINE STOPPED.PT IS SEDATED W/P/D SKIN
--- NOTE | 2020-11-05 21:15 | NUR ---
PT UNABLE TO COMPLY SAFWEELY WITH PO MEDICATIONS CHG NURSE INFROMED AND MEDS HELD.
--- NOTE | 2020-11-05 22:45 | NUR ---
PT SPONT OPENS EYES I CARRYOUT NURSONG DUTIES NEAR BED.PT IS COMPLIANT WITH BIPAP MASK W/P/D SKIN SAO2 96% NO COUGH OR CONGESTION
[2020-11-06] VITALS (8 sets, daily range): BP systolic 114–166; BP diastolic 53–93
--- NOTE | 2020-11-06 02:38 | NUR ---
ASLEEP BILAT BREATH SOUNDS CLEAR NO COUGH NO CONGESTION NO WHEEZES.W/P/D SKIN
--- NOTE | 2020-11-06 07:00 | NUR ---
RECIEVED FOR CARE. RESTING QUIETLY. BIPAP CONTINUES
--- NOTE | 2020-11-06 07:30 | NUR ---
RT TO BEDSIDE TO EVALUATE. PHYSICIAN CALLED ,LMSG TO REQUEST ABG FOLLOW UP.
--- NOTE | 2020-11-06 08:21 | NUR ---
Respiratory at bedside to do ABG.
--- NOTE | 2020-11-06 09:08 | NUR ---
PATIENT SLEEPING,CALMER SINCE ATIVAN. MONITORING CONTINUES, BIPAP ON, SAT 98
--- NOTE | 2020-11-06 09:59 | NUR ---
physician rounded. Patient resting quietly.
[2020-11-06 10:21] LABS: HEMATOCRIT 39.6 % (37.0-47.0); HEMOGLOBIN 10.9 g/dl (12.0-16.0); MEAN CELL VOLUME 103.9 fL CALC (80.0-100.0); MEAN CORPUSCULAR HGB 28.6 pG CALC (26.0-32.0); MEAN CORPUSCULAR HGB CONC 27.5 g/dL CAL (32.0-36.0); RED BLOOD COUNT 3.81 mill/uL (4.20-5.60); RED CELL DISTRI WIDTH 15.5 % (11.5-15.5)
--- NOTE | 2020-11-06 10:23 | NUR ---
Respiratory at bedside to do duoneb. Patient comfortable.
--- NOTE | 2020-11-06 10:37 | NUR ---
Patient resting quietly. CALL AMBROSIO IN REACH
[2020-11-06 10:38] LABS: BUN 23 mg/dL (8-23); BUN/CREATININE RATIO 89 (12-20 (CALC)); CHLORIDE 93 mmol/l (95-108); CREATININE 0.3 mg/dL (0.5-1.0); GFR > 60 ML/MIN (>=60 (CALC)); GFR FOR AFR.AMER. > 60 ML/MIN (>=60 (CALC)); POTASSIUM 3.9 mmol/l (3.5-5.1); SODIUM 144 mmol/l (137-146)
--- NOTE | 2020-11-06 11:07 | NUR ---
LAB CALLED WITH CRITICAL VALUE OF 51-CO2- MATT JAMES
[2020-11-06 11:08] LABS: ANION GAP 4 (6-22 (CALC)); CARBON DIOXIDE 51 mmol/l (22-30); MAGNESIUM 2.1 mg/dL (1.6-2.3)
--- NOTE | 2020-11-06 11:37 | NUR ---
URINE COLLECTED VIA STRAIGHT CATH. STERILE TECHNIQUE MAINTAINED, PATIENT TOLERATED WELL. PERICARE AND LINEN CHANGE COMPLETED.
[2020-11-06 12:06] LABS: URINE BILIRUBIN - DIPSTICK NEGATIVE (NEGATIVE); URINE BLOOD DIPSTICK TRACE-INTACT (NEGATIVE); URINE COLOR YELLOW; URINE GLUCOSE - DIPSTICK NEGATIVE (NEGATIVE); URINE KETONE NEGATIVE (NEGATIVE); URINE PROTEIN - DIPSTICK NEGATIVE (NEG-TRACE); URINE SPECIFIC GRAVITY 1.015; URINE UROBILINOGEN - DIPSTICK 0.2 E.U./dL (0.2)
[2020-11-06 12:07] LABS: URINE BACTERIA FEW hpf; URINE EPITHELIAL CELLS MODERATE EPI/hpf (0-FEW); URINE LEUK ESTERASE MODERATE (NEGATIVE); URINE NITRITE - DIPSTICK NEGATIVE (Negative); URINE RBC 0-2 RBC/hpf (0-5)
--- NOTE | 2020-11-06 12:19 | NUR ---
RESTING QUIETLY, BIPAP ON.
--- NOTE | 2020-11-06 13:49 | NUR ---
RESTING QUIETLY. CALL AMBROSIO AVAILABLE.
--- NOTE | 2020-11-06 13:53 | NUR ---
S: CHANCE BURGER is a 70 F who presents with Pneumonia/COPD. She has a history of Hypertension, Hyperlipidemia, Dementia, Asthma, Congestive heart failure and COVID. All medications in patient's chart were reviewed. O: VS: BP 154/80mmHg, P 84bpm , RR 30bpm,T 97.9F W 73kg, HT 50inches, Scr=0.3mg/dL, CrCl= 34.78ml/min A: Blood culture is pending. Urine culture is pending. P: Patient is on Zosyn 3.375g IV Q6H. Vancomycin ordered for pharmacy to dose. Start Vancomycin 750mg IV Q12H. Vancomycin trough is drawn before the 4th dose on at 0730. Vancomycin goal trough is between 15-20 mcg/ml. Pharmacy will follow and or advise on antibiotics use as needed.
--- NOTE | 2020-11-06 15:05 | NUR ---
PATIENT SLEEPING. CALL AMBROSIO IN REACH.
--- NOTE | 2020-11-06 16:00 | NUR ---
RESPIRATORY AT BEDSIDE TO GIVE NB TREATMENT.
--- NOTE | 2020-11-06 16:24 | NUR ---
PATIENT RESTING QUIETLY. CALL AMBROSIO IN PLACE.
--- NOTE | 2020-11-06 18:49 | NUR ---
PERICARE AND MOUTHCARE GIVEN. PATIENT VOIDED MODERATE AMOUNT OF CLEAR URINE
--- NOTE | 2020-11-06 19:05 | NUR ---
report called to jose antonio in icu.
[2020-11-07] VITALS: BP 108/56
[2020-11-07 02:00] VITALS: BP 103/61
--- NOTE | 2020-11-07 02:01 | NUR ---
CALL PLACED TO ADMITTING PHYSICIAN DUE TO AFIB RVR WITH HYPOTENTION. ON CHART REVIEW MORNING CARDIZEM DOSE WAS REFUSED. CARDIZEM IV DOSE REQUESTED. PER PHYSICIAN, GIVE PRN LOPRESSOR AND CARDIZEM DOSING WILL BE ADDRESSED IN A.M.
[2020-11-07 04:00] VITALS: BP 156/75
[2020-11-07 06:00] VITALS: BP 156/75
--- NOTE | 2020-11-07 07:10 | NUR ---
REPORT RECIEVED FROM ZELDA GALLARDO
[2020-11-07 07:50] LABS: HEMATOCRIT 42.7 % (37.0-47.0); HEMOGLOBIN 11.8 g/dl (12.0-16.0); MEAN CELL VOLUME 102.6 fL CALC (80.0-100.0); MEAN CORPUSCULAR HGB 28.4 pG CALC (26.0-32.0); MEAN CORPUSCULAR HGB CONC 27.6 g/dL CAL (32.0-36.0); RED BLOOD COUNT 4.16 mill/uL (4.20-5.60); RED CELL DISTRI WIDTH 15.5 % (11.5-15.5)
[2020-11-07 08:10] LABS: BUN 26 mg/dL (8-23); BUN/CREATININE RATIO 91 (12-20 (CALC)); CHLORIDE 91 mmol/l (95-108); CREATININE 0.3 mg/dL (0.5-1.0); GFR > 60 ML/MIN (>=60 (CALC)); GFR FOR AFR.AMER. > 60 ML/MIN (>=60 (CALC)); MAGNESIUM 1.7 mg/dL (1.6-2.3); POTASSIUM 4.3 mmol/l (3.5-5.1); SODIUM 142 mmol/l (137-146)
[2020-11-07 08:21] LABS: ANION GAP 8 (6-22 (CALC))
[2020-11-07 08:24] LABS: CARBON DIOXIDE 47 mmol/l (22-30)
--- NOTE | 2020-11-07 09:00 | NUR ---
PT CONTINUES TO HOLLER OUT, MYSELF AND NURSE ETHAN AT BEDSIDE, MEDS GIVEN. URINARY TUBBS PLACED DUE TO INCONTINENCE, PT TOLERATED WELL. HIGH FLOW NASAL CANNULA IN PLACE. PT SETTLED DOWN AT THIS TIME.
--- NOTE | 2020-11-07 09:18 | NUR ---
PRELIM BLOOD CX SHOWS GRAM POSITIVE COCCI IN 2/[address] PINON. PT ALREADY ON VANCO. WILL F/U WITH FINAL
--- NOTE | 2020-11-07 10:11 | NUR ---
NOTIFIED OF SON BEING BEDSIDE TO DISCUSSED PPOC/DNR
--- NOTE | 2020-11-07 11:10 | NUR ---
DNR SIGNED BY ATTENDING AND SON
--- NOTE | 2020-11-07 11:12 | NUR ---
MATT BOTELLO DISCUSSED HOSPICE CONSULT WITH FAMILY. FAMILY AGREES TO CONSULT TO BE CALLED IN BY ELAINA
--- NOTE | 2020-11-07 11:21 | NUR ---
SON AT BEDSIDE, DNR SIGNED AT THIS TIME. PT CONTINUES TO REST, NO DISTRESS.
--- NOTE | 2020-11-07 12:30 | NUR ---
S: CHANCE BURGER is a 70 F who presents with Pneumonia/COPD, UTI. She has a history of Hypertension, Hyperlipidemia, Dementia, Asthma, Congestive heart failure and Covid. All medications in patient's chart were reviewed. O: VS: BP 127/53mmHg , P 127bpm , RR 20bpm ,T 98.5F W 73kg, HT 50inches Scr=0.3mg/dL,CrCl= 34.78ml/min Vancomycin trough = 11 A: Blood culture shows no growth. Urine culture is pending. Sputum culture is pending. P: Patient is on meropenem 1g IV BID. Vancomycin ordered for pharmacy to dose. Continue Vancomycin 750mg IV Q12H. Vancomycin trough is drawn before the dose on 11/08/20 at 0730. Vancomycin goal trough is between 15-20 mcg/ml. Pharmacy will follow and or advise on antibiotics use as needed.
--- NOTE | 2020-11-07 13:15 | NUR ---
PT SLEEPING COMFORTABLY, STABLE ON MONITOR. TUBBS DRAINING CLEAR YELLOW URINE. BED REMAINS IN LOW POSITION.
[2020-11-07 13:56] VITALS: BP 112/54
--- NOTE | 2020-11-07 15:25 | NUR ---
PT MEDICATED, WATER PROVIDED. NO CONCERNS VOICED. PT REORIENTED TO TIME AND LOCATION. BED IN LOW POSITION. WILL CONTINUE TO MONITOR.
--- NOTE | 2020-11-07 17:25 | NUR ---
PT TRANSPORTED TO PACU. REPORT GIVEN TO ZELDA SUNSHINE. NO CHANGES WITH PT. PT TO BE PLACED IN HOSPICE HOUSE UPON BED AVAILABILITY.
--- NOTE | 2020-11-07 17:54 | NUR ---
TO FLOOR ACCOMPANIED BY RN. ASLEEP IN BED. RESPIRATIONS EVEN AND UNLABORED. SEE VITALS SIGNS DOCUMENTED.
[2020-11-07 17:59] VITALS: BP 130/57
--- NOTE | 2020-11-08 01:18 | NUR ---
2000-both upper extremities very edmatous. oxygen @ 8L. very sleepy-not responding. ETCO2 71. [place] with yelow cloudy urine. 2199-After antibiotic administered c/o pain at IV site. reddened. appears more edmatous than previously. Awake. Fed applesauce and cranberry juice as she requested. 2304-placed back on BIPAP by RT. Patient cooperative and accepting of BIPAP. 0015-saturation 91%.
--- NOTE | 2020-11-08 03:00 | NUR ---
lying quietly sleeping tolerating BIPAP well. saturation 94%.
--- NOTE | 2020-11-08 03:21 | NUR ---
Linen changed and patient repositioned. Speech clearer. more alert when awake than previously.
--- NOTE | 2020-11-08 03:46 | NUR ---
BIPAP bypassed for patient to eat pop tart and drink. ETCO2 56.
[2020-11-08 07:07] LABS: URINE BLOOD DIPSTICK SMALL (NEGATIVE); URINE CLARITY CLEAR; URINE COLOR YELLOW; URINE GLUCOSE - DIPSTICK >=1000 mg/dL (NEGATIVE); URINE KETONE TRACE mg/dL (NEGATIVE); URINE LEUK ESTERASE NEGATIVE (Negative); URINE NITRITE - DIPSTICK NEGATIVE (Negative); URINE SPECIFIC GRAVITY 1.015; URINE UROBILINOGEN - DIPSTICK 0.2 E.U./dL (0.2)
[2020-11-08 07:14] LABS: URINE BACTERIA RARE hpf; URINE BILIRUBIN - DIPSTICK NEGATIVE (NEGATIVE); URINE EPITHELIAL CELLS RARE EPI/hpf (0-FEW); URINE PROTEIN - DIPSTICK NEGATIVE (NEG-TRACE); URINE WBC 0-2 WBC/hpf (0-5)
--- NOTE | 2020-11-08 07:34 | NUR ---
PT note 11/07/20 Spoke with medical regarding PT evaluation. THe patient/ family are considering hospice. We will hold off on evaluation for now
[2020-11-08 08:34] VITALS: BP 107/55
[2020-11-08 11:06] VITALS: BP 107/55
--- NOTE | 2020-11-08 12:24 | NUR ---
1030-HOSPITALIST ROUNDED ON PT.
--- NOTE | 2020-11-08 12:26 | NUR ---
1200-HOSPICE NURSE HERE TO SEE PT. AWAITING BED. CHARITY FUNDRAISER NOTIFIED
--- NOTE | 2020-11-08 14:34 | NUR ---
BIPAP STANDBY. ON 6L NC
--- NOTE | 2020-11-08 15:59 | NUR ---
PATIENT IS BEING DISCHARGED TO INHOUSE HOSP[facility] AT THIS TIME.
== END 2020-11-08 15:05 | disposition hospice, inpatient (51) | DRG 193 ==
LOC: ED 13:53 → ED-I 17:03 → ED 17:32 → ED-I 17:33 → MSH 11-07 15:48
PROVIDERS: Emergency Medicine; Nurse Practitioner; ADMIT Hospitalist; ATTEND Hospitalist
PROC: 5A09457 Assistance with Respiratory Ventilation, 24-96 Consecutive Hours, Continuous Positive Airway Pressure (ICD-10-PCS; principal; 2020-11-05)
PROC: 0T9B70Z Drainage of Bladder with Drainage Device, Via Natural or Artificial Opening (ICD-10-PCS; 2020-11-07)
DX: J18.9 Pneumonia, unspecified organism (principal); J96.22 Acute and chronic respiratory failure with hypercapnia; J96.21 Acute and chronic respiratory failure with hypoxia; J44.0 Chronic obstructive pulmonary disease with (acute) lower respiratory infection; N39.0 Urinary tract infection, site not specified; I48.20 Chronic atrial fibrillation, unspecified; I11.0 Hypertensive heart disease with heart failure; I50.9 Heart failure, unspecified; E78.5 Hyperlipidemia, unspecified; F03.90 Unspecified dementia, unspecified severity, without behavioral disturbance, psychotic disturbance, mood disturbance, and anxiety; F41.9 Anxiety disorder, unspecified; M19.90 Unspecified osteoarthritis, unspecified site; E83.42 Hypomagnesemia; Z66 Do not resuscitate; Z51.5 Encounter for palliative care; Z86.16 Personal history of COVID-19; Z79.01 Long term (current) use of anticoagulants; Z87.01 Personal history of pneumonia (recurrent); Z20.822 Contact with and (suspected) exposure to COVID-19
CPT/HCPCS: J1650; J2060; J3370

== ENCOUNTER 2020-11-08 15:06 | Inpatient (IN) | payer OTHER, MEDICARE, MEDICAID ==
[~2020-11-08] VITALS: Ht 127 cm; Wt 73.0 kg
[2020-11-08 17:17] VITALS: BP 88/63
[2020-11-08 20:26] VITALS: BP 99/51
--- NOTE | 2020-11-08 20:28 | NUR ---
1950 RECEVIED PATIENT REPORT. PATIENT RESTING WITH O2 VIA NC @8L/MIN. BIPAP AT BEDSIDE BUT WAS D/C DURING THE DAY. PATIENT TRANSFERRED TO IN HOUSE HOSPICE AWAITING BED PLACEMENT. PATIENT ANSWERS APPROPRIATELY. NO ACUTE DISTRESS NOTED THIS TIME.
--- NOTE | 2020-11-08 23:18 | NUR ---
PATIENT AWAKE, STATES SHE IS HUNGRY. PATIENT ATE A PEACH FRUIT CUP AND A CUP OF APPLESAUCE WITHOUT DIFFICULTY BEING FED BY THIS SERVICE SPECIALIST.
--- NOTE | 2020-11-09 03:06 | NUR ---
PATIENT RESTING COMFORTABLY. NO ACUTE DISTRESS NOTED.
[2020-11-09 06:41] VITALS: BP 130/49
[2020-11-09 09:50] VITALS: BP 121/51
--- NOTE | 2020-11-09 10:37 | NUR ---
1030 HOSPICE CALLED TO ENQUIRE REGARDING PT STATUS. NO HOSPICE BED AVAILABLE. THEY WILL CONTINUE TRYING TO LOCATE A HOSPICE BED
[2020-11-09 14:35] VITALS: BP 119/56
--- NOTE | 2020-11-09 17:10 | NUR ---
1545: PT TOLERATED BED CHANGE, PARTIAL BATH. SITTING UP AWAKE, IN BED VERY TALKATIVE.
--- NOTE | 2020-11-09 18:50 | NUR ---
PT SITTING UP IN BED AWAkE, TALKATIVE. C/O HEADACHE. UNABLE TO OBTAIN PO ORDER FOR TYLENOL PER MD. NO IV ACCESS AT THIS TIME.
--- NOTE | 2020-11-09 19:25 | NUR ---
SB[facility] REPORT GIVEN TO ZELDA TRAN/ZELDA VALADEZ
[2020-11-09 20:51] VITALS: BP 104/43
--- NOTE | 2020-11-09 20:52 | NUR ---
FULLY AWAKE AND ALERT. HAD C/O HEADACHE-RELIEVED WITH COLD COMPRESSES ON HER FOREHEAD. NO DISTRESS. CHEST WITH COARSE RALES. TUBBS TO BEDSIDE DRAINAGE WITH SLIGHTLY CLOUDY STRAW COLORED URINE. SKIN INTEGRITY GOOD.
--- NOTE | 2020-11-09 23:55 | NUR ---
Eating peaches then applesuce. Alert pleasant.
[2020-11-10 01:21] VITALS: BP 113/61
[2020-11-10 05:52] VITALS: BP 117/61
--- NOTE | 2020-11-10 08:30 | NUR ---
PATIENT SITTING UP IN BED BEING VERY LOUD AND INAPPRORIATE. BED BATH DONE DRY STOOL IN RECTUM. WILL ADMINISTER STOOL SOFTENER ORDERED.
--- NOTE | 2020-11-10 09:00 | NUR ---
ROUNDS DONE BY DR PINON AND Amira SAENZ.
[2020-11-10 09:05] VITALS: BP 162/67
--- NOTE | 2020-11-10 10:57 | NUR ---
HOSPICE NURSE HER TO EVALUATE PATIENT.
[2020-11-10 14:27] VITALS: BP 152/75
--- NOTE | 2020-11-10 18:39 | NUR ---
PATIENT LEFT VIA [facility] FOR [facility].
== END 2020-11-10 18:39 | disposition hospice, inpatient (51) | DRG 951 ==
LOC: MSH 15:06
PROVIDERS: ADMIT Hospitalist; ATTEND Hospitalist
DX: Z51.5 Encounter for palliative care (principal); J96.22 Acute and chronic respiratory failure with hypercapnia; J96.21 Acute and chronic respiratory failure with hypoxia; J18.9 Pneumonia, unspecified organism; Z68.42 Body mass index [BMI] 45.0-49.9, adult; J44.0 Chronic obstructive pulmonary disease with (acute) lower respiratory infection; I11.0 Hypertensive heart disease with heart failure; I50.9 Heart failure, unspecified; F03.90 Unspecified dementia, unspecified severity, without behavioral disturbance, psychotic disturbance, mood disturbance, and anxiety; E66.01 Morbid (severe) obesity due to excess calories; E78.5 Hyperlipidemia, unspecified; E34.3 Short stature due to endocrine disorder; Z66 Do not resuscitate; Z86.16 Personal history of COVID-19; Z87.01 Personal history of pneumonia (recurrent); Z20.822 Contact with and (suspected) exposure to COVID-19